=== PATIENT | female | born 1990 | race Hispanic/Latino ===

== ENCOUNTER 2019-12-31 11:58 | Emergency (ER) | payer MEDICAID, OTHER, SELFPAY ==
[2019-12-31] MEDS ORDERED: ACETAMINOPHEN EXTRA STRENGTH 500 MG TABLET ONE (13:24)
== END 2019-12-31 14:25 | disposition home or self-care (01) ==
LOC: EDH 11:58
DX: U07.1 COVID-19 (principal); B34.9 Viral infection, unspecified
CPT/HCPCS: 36415; 82550; 84484; 87804 ×2; 93005; 99284; U0003